=== PATIENT | female | born 1985 | race Caucasian/White ===

== ENCOUNTER 2018-10-09 20:25 | Inpatient (IN) | payer OTHER ==
[~2018-10-09] VITALS: Ht 157 cm; Wt 68.9 kg
[2018-10-09] MEDS: RINGERS SOLUTION,LACTATED 1,000 ML IV SCH (20:26)
[2018-10-09] MEDS ORDERED: RINGERS SOLUTION,LACTATED 1,000 ML IV ONE (20:26)
[2018-10-09] MEDS ORDERED: OXYTOCIN 30 UNITS/LACT RINGERS 500 ML IV ONE (20:26)
[2018-10-09] MEDS ORDERED: LIDOCAINE/PF 1% 30 ML VIAL INJ PRN (20:30)
[2018-10-09] MEDS ORDERED: METOCLOPRAMIDE HCL 5 MG/ML 2 ML VIAL IVP PRN (20:30)
[2018-10-09] MEDS ORDERED: CITRIC ACID/SODIUM CITRATE 30 ML SOLUTION UDCUP PO PRN (20:30)
[2018-10-09 21:01] LABS: BASOPHILS % (AUTO) 0.4 % (0.0-2.0); EOSINOPHILS % (AUTO) 0.4 % (1.0-6.0); HEMATOCRIT 37.3 % (36-46); HEMOGLOBIN 12.5 g/dL (12.0-16.0); LYMPHOCYTES # (AUTO) 2.1 K/uL (1.0-4.8); LYMPHOCYTES % (AUTO) 30.4 % (22.0-44.0); MEAN CORPUSCULAR HEMOGLOBIN 33.2 pg (26.0-34.0); MEAN CORPUSCULAR HGB CONC 33.4 G/dL (31.0-37.0); MEAN CORPUSCULAR VOLUME 99 fL (80-100); MONOCYTES # (AUTO) 0.6 K/uL (0.1-1.0); MONOCYTES % (AUTO) 8.2 % (2.0-9.0); NEUTROPHILS # (AUTO) 4.2 K/uL (1.8-7.7); NEUTROPHILS % (AUTO) 60.6 % (40.0-70.0); PLATELET COUNT (AUTO) 202 K/uL (150-450); RED BLOOD CELL COUNT(AUTO) 3.76 MIL/uL (4.00-5.20)
[2018-10-09] MEDS ORDERED: PREN1TAB80 PO (21:22)
[2018-10-09] MEDS ORDERED: MISOPROSTOL 25 MCG TABLET VG ONE (22:15)
[2018-10-09] MEDS ORDERED: BUTORPHANOL TARTRATE 2 MG/ML VIAL IVP PRN (22:45)
[2018-10-10] MEDS ORDERED: MISOPROSTOL 50 MCG TABLET PO ONE ×2 (02:30→10:45)
[2018-10-10] MEDS: FentaNYL CITRATE-PF 100 MCG/2 ML VIAL IVP PRN ×4 (03:34→09:17)
[2018-10-10] MEDS: RINGERS SOLUTION,LACTATED 1,000 ML IV SCH ×2 (05:12→11:26)
[2018-10-10] MEDS ORDERED: MISOPROSTOL 50 MCG TABLET VG ONE (06:30)
[2018-10-10] MEDS ORDERED: ROPIVACAINE HCL/PF 0.2% 100 ML ED ONE (13:01)
[2018-10-10] MEDS ORDERED: ROPIVACAINE HCL/PF 0.2% 100 ML ED PRN (13:23)
[2018-10-10] MEDS ORDERED: DiphenhydrAMINE HCL 50 MG/ML VIAL IVP PRN (13:30)
[2018-10-10] MEDS ORDERED: NALBUPHINE HCL 10 MG/ML VIAL IVP PRN (13:30)
[2018-10-10] MEDS ORDERED: ONDANSETRON HCL 4 MG/2 ML VIAL IVP PRN (13:30)
[2018-10-10] MEDS ORDERED: OXYTOCIN 30 UNITS/LACT RINGERS 500 ML IV PRN (14:46)
[2018-10-10 14:47] VITALS: BP 123/72
[2018-10-10] MEDS ORDERED: LANOLIN 7 GM OINTMENT TP PRN (20:15)
[2018-10-10] MEDS ORDERED: OxyCODONE HCL/ACETAMINOPHEN 5-325 MG TABLET PO PRN ×2 (20:15)
[2018-10-10] MEDS ORDERED: METHYLERGONOVINE MALEATE 0.2 MG TABLET PO PRN (20:15)
[2018-10-10] MEDS ORDERED: MAGNESIUM HYDROXIDE SUSPENSION 30 ML UDCUP PO PRN (20:15)
[2018-10-10] MEDS ORDERED: SENNA/DOCUSATE SODIUM 8.6-50 MG TABLET PO PRN (20:15)
[2018-10-10] MEDS ORDERED: OXYTOCIN 20 UNITS/LACT RINGERS 1,000 ML IV ONE ×2 (20:37→20:45)
[2018-10-10] MEDS ORDERED: MISOPROSTOL 100 MCG TABLET PR ONE (22:15)
[2018-10-11] MEDS: IBUPROFEN 800 MG TABLET PO PRN ×3 (04:11→19:58)
[2018-10-11 05:51] LABS: BASOPHILS % (AUTO) 0.3 % (0.0-2.0); EOSINOPHILS % (AUTO) 0.1 % (1.0-6.0); HEMATOCRIT 29.3 % (36-46); HEMOGLOBIN 10.1 g/dL (12.0-16.0); LYMPHOCYTES # (AUTO) 2.7 K/uL (1.0-4.8); LYMPHOCYTES % (AUTO) 17.8 % (22.0-44.0); MEAN CORPUSCULAR HEMOGLOBIN 34.1 pg (26.0-34.0); MEAN CORPUSCULAR HGB CONC 34.5 G/dL (31.0-37.0); MEAN CORPUSCULAR VOLUME 99 fL (80-100); MONOCYTES # (AUTO) 1.4 K/uL (0.1-1.0); MONOCYTES % (AUTO) 9.1 % (2.0-9.0); NEUTROPHILS # (AUTO) 11.2 K/uL (1.8-7.7); NEUTROPHILS % (AUTO) 72.7 % (40.0-70.0); PLATELET COUNT (AUTO)-OB 170 K/uL (150-450); RED BLOOD CELL COUNT(AUTO) 2.96 MIL/uL (4.00-5.20); RED CELL DISTRIBUTION WIDTH 12.9 % (11.5-14.5)
[2018-10-11] MEDS ORDERED: DOCUSATE SODIUM 100 MG CAPSULE PO PRN (06:30)
[2018-10-11] MEDS ORDERED: RINGERS SOLUTION,LACTATED 1,000 ML IV SCH (06:30)
[2018-10-11] MEDS: AMPICILLIN SODIUM 2 GM/NS 100 ML IV SCH ×3 (06:42→17:59)
[2018-10-11] MEDS: SOD FERRIC GLUC COMPLX/SUCROSE 125 MG in SODIUM CHLORIDE 0.9% 100 ML IV SCH ×2 (10:49→23:03)
[2018-10-11] MEDS: MAGNESIUM HYDROXIDE SUSPENSION 30 ML UDCUP PO PRN (10:58)
[2018-10-11] MEDS: BENZOCAINE 20%/MENTHOL 56 GM SPRAY CANISTER TP PRN (11:00)
[2018-10-11] MEDS: GLYCERIN/WITCH HAZEL LEAF 40 PADS JAR TP PRN (11:01)
[2018-10-12] MEDS: AMPICILLIN SODIUM 2 GM/NS 100 ML IV SCH (00:38)
[2018-10-12] MEDS ORDERED: DiphenhydrAMINE HCL 25 MG CAPSULE PO ONE (01:30)
[2018-10-12] MEDS: CLINDAMYCIN HCL 300 MG CAPSULE PO SCH ×2 (04:04→10:13)
[2018-10-12 06:19] LABS: BASOPHILS % (AUTO) 0.2 % (0.0-2.0); HEMATOCRIT 28.9 % (36-46); HEMOGLOBIN 9.5 g/dL (12.0-16.0); LYMPHOCYTES # (AUTO) 2.7 K/uL (1.0-4.8); MEAN CORPUSCULAR HEMOGLOBIN 33.2 pg (26.0-34.0); MEAN CORPUSCULAR HGB CONC 32.9 G/dL (31.0-37.0); MEAN CORPUSCULAR VOLUME 101 fL (80-100); MONOCYTES # (AUTO) 0.9 K/uL (0.1-1.0); MONOCYTES % (AUTO) 6.6 % (2.0-9.0); NEUTROPHILS # (AUTO) 9.2 K/uL (1.8-7.7); NEUTROPHILS % (AUTO) 71.2 % (40.0-70.0); PLATELET COUNT (AUTO)-OB 190 K/uL (150-450); RED BLOOD CELL COUNT(AUTO) 2.86 MIL/uL (4.00-5.20); RED CELL DISTRIBUTION WIDTH 12.8 % (11.5-14.5)
[2018-10-12] MEDS ORDERED: DSS100 PO (09:27)
[2018-10-12] MEDS ORDERED: IBUP-2071 PO (09:27)
[2018-10-12] MEDS ORDERED: FERR-89 PO (09:27)
[2018-10-12] MEDS: GLYCERIN/WITCH HAZEL LEAF 40 PADS JAR TP PRN (10:12)
[2018-10-12] MEDS: BENZOCAINE 20%/MENTHOL 56 GM SPRAY CANISTER TP PRN (10:12)
[2018-10-12] MEDS: MAGNESIUM HYDROXIDE SUSPENSION 30 ML UDCUP PO PRN (10:12)
[2018-10-12] MEDS: IBUPROFEN 800 MG TABLET PO PRN (10:13)
== END 2018-10-12 10:00 | disposition home or self-care (01) | DRG 768 ==
LOC: 4S 20:25 → OBSVTOIN 20:25
PROVIDERS: ADMIT Specialist; ATTEND Specialist
PROC: 10E0XZZ Delivery of Products of Conception, External Approach (ICD-10-PCS; principal; 2018-10-10)
PROC: 0DQR0ZZ Repair Anal Sphincter, Open Approach (ICD-10-PCS; 2018-10-10)
PROC: 3E0R3BZ Introduction of Anesthetic Agent into Spinal Canal, Percutaneous Approach (ICD-10-PCS; 2018-10-10)
PROC: 00HU33Z Insertion of Infusion Device into Spinal Canal, Percutaneous Approach (ICD-10-PCS; 2018-10-10)
DX: O70.20 Third degree perineal laceration during delivery, unspecified (principal); Z37.0 Single live birth; Z3A.40 40 weeks gestation of pregnancy
CPT/HCPCS: 86850; 86900; 86901; 93971; J0290; J0595; J2590; J2795; J2916; J3010; J7050; J7120